=== PATIENT | female | born 1995 | race American Indian/Alaskan Native ===

== ENCOUNTER 2017-01-04 11:03 | Emergency (ER) | payer SELFPAY ==
[2017-01-04 12:13] LABS: Basophils % (Auto) 0.5 % (0.0-1.8); Eosinophils % (Auto) 2.1 % (0.0-4.3); Hematocrit 39.2 % (30.3-42.9); Hemoglobin 12.9 gm/dl (10.1-14.3); Mean Corpuscular HGB Conc 33 % (30-34); Mean Corpuscular Hemoglobin 28 pg (28-32); Mean Corpuscular Volume 86 fl (79-97); Platelet Count 257 K/mm3 (140-440); Red Blood Count 4.59 M/mm3 (3.65-5.03); Red Cell Distribution Width 14.2 % (13.2-15.2); White Blood Count 8.9 K/mm3 (4.5-11.0)
[2017-01-04 12:29] LABS: Alanine Aminotransferase 16 units/L (7-56); Albumin 3.7 g/dL (3.9-5); Alkaline Phosphatase 71 units/L (35-129); Anion Gap 16 mmol/L; BUN/Creatinine Ratio 12; Blood Urea Nitrogen 7 mg/dL (7-17); Calcium 9.1 mg/dL (8.4-10.2); Carbon Dioxide 28 mmol/L (22-30); Chloride 100.7 mmol/L (98-107); Glucose 92 mg/dL (65-100); Lipase 32 units/L (13-60); Potassium 4.5 mmol/L (3.6-5.0); Sodium 140 mmol/L (137-145); Total Protein 7.4 g/dL (6.3-8.2)
[2017-01-04 13:16] LABS: Urine Drugs of Abuse Note Disclamer
[2017-01-04 13:42] LABS: Bacteria,Urine 2+ /HPF (Negative); Bilirubin,Urine NEG (Negative); Blood,Urine NEG (Negative); Ketones,Urine NEG (Negative); Leukocyte Esterase,Urine TR (Negative); Mucus,Urine 1+ /HPF; Nitrite,Urine POS (Negative); Protein,Urine <15 mg/dL mg/dL (Negative)
[2017-01-04] MEDS ORDERED: ZOFRAN IV ONE ×2 (14:11→15:08)
[2017-01-04] MEDS ORDERED: NACL 0.9% 1000 ML 1,000 ML IV ONE (14:11)
[2017-01-04] MEDS ORDERED: ATIVAN IV ONE (15:06)
--- NOTE | 2017-01-04 15:15 | Emergency Department Report ---
HPI - General Chief Complaint: Nausea/Vomiting/Diarrhea Time Seen by Provider: 01/04/17 14:03 - HPI HPI: This is a 21-year-old female presents to the emergency department with complaint of some dizziness, nausea, vomiting that she feels as a withdrawal from heroin, Xanax and cocaine. She last did heroin and cocaine about 2 nights ago and did some Xanax last night. She has a past medical history of asthma, diet controlled diabetes. She has a psychiatric history of bipolar disorder and schizophrenia. She recently moved here from [place] and therefore does not have any primary care physician, family or support. She denies any hallucinations, suicidal or homicidal ideations. ED Past Medical Hx - Past Medical History Hx Hypertension: No Hx Diabetes: Yes (controlled and not on medication) Hx Deep Vein Thrombosis: No Hx Renal Disease: No Hx Sickle Cell Disease: No Hx Seizures: No Hx Psychiatric Treatment: Yes (bipolar,schizophrenia) Hx Asthma: Yes (inhaler last used 1 month ago,.) Hx HIV: No - Surgical History Additional Surgical History: heroin addiction - Social History Smoking Status: Current Every Day Smoker Substance Use Type: Heroin, Other - Medications Home Medications: Home Medications Medication Instructions Recorded Confirmed Last Taken Type Acetaminophen/Codeine [Tylenol #3] 1 tab PO Q6H PRN #20 tab 08/13/15 12/03/15 Unknown Rx Amoxicillin [Trimox CAP] 500 mg PO Q8H #30 capsule 08/13/15 12/03/15 Unknown Rx Ibuprofen [Motrin] 600 mg PO Q8H PRN #40 tablet 08/13/15 12/03/15 Unknown Rx Ibuprofen [Motrin 600 MG tab] 600 mg PO Q6H #30 tablet 11/21/15 12/03/15 Unknown Rx oxyCODONE /ACETAMINOPHEN [Percocet 1 tab PO Q6H PRN #30 tablet 11/21/15 Unknown Rx 5/325 mg] Albuterol Sulfate [Ventolin HFA] 2 puff IH Q4H PRN #1 hfa.aer.ad 12/03/15 Unknown Rx Azithromycin [Zithromax Z-TIMBO] 1 dose PO DAILY 5 Days 12/03/15 Unknown Rx Benzonatate [Tessalon Perles] 100 mg PO Q8HR PRN #30 capsule 12/03/15 Unknown Rx Ibuprofen [Motrin] 800 mg PO Q8HR PRN #30 tablet 12/03/15 Unknown Rx Prednisone [predniSONE 10 mg 10 mg PO .TAPER #1 tab.ds.pk 12/03/15 Unknown Rx (6-Day Pack, 21 Tabs)] ED Review of Systems ROS: Stated complaint: HEROIN WITHDRAWL Other details as noted in HPI Comment: All other systems reviewed and negative Constitutional: denies: chills, fever Eyes: denies: eye pain, eye discharge, vision change ENT: denies: ear pain, throat pain Respiratory: denies: cough, shortness of breath, wheezing Cardiovascular: denies: chest pain, palpitations Gastrointestinal: nausea, vomiting Genitourinary: denies: urgency, dysuria, discharge Musculoskeletal: denies: back pain, joint swelling, arthralgia Skin: denies: rash, lesions Neurological: denies: headache, weakness, paresthesias Psychiatric: anxiety. denies: auditory hallucinations, visual hallucinations, homicidal thoughts, suicidal thoughts Physical Exam - Physical Exam Vital Signs: Vital Signs 01/04/17 01/04/17 11:44 14:40 Temperature 99.4 F 99.3 F Pulse Rate 112 H 92 H Respiratory 18 16 Rate Blood Pressure 122/74 Blood Pressure 111/73 [Left] O2 Sat by Pulse 99 98 Oximetry Physical Exam: GENERAL: The patient is well-developed well-nourished. HENT: Normocephalic. Atraumatic. Patient has moist mucous membranes. EYES: Extraocular motions are intact. Pupils equal reactive to light bilaterally. NECK: Supple. Trachea is midline. CHEST/LUNGS: Clear to auscultation. There is no respiratory distress noted. HEART/CARDIOVASCULAR: Regular. There is mild tachycardia. There is no gallop rub or murmur. ABDOMEN: Abdomen is soft, nontender. Patient has normal bowel sounds. There is no abdominal distention. SKIN: Skin is warm and dry. NEURO: The patient is awake, alert, and oriented. The patient is cooperative. The patient has no focal neurologic deficits. The patient has normal speech. MUSCULOSKELETAL: There is no tenderness or deformity. There is no limitation range of motion. There is no evidence of acute injury. ED Course Vital Signs 01/04/17 01/04/17 11:44 14:40 Temperature 99.4 F 99.3 F Pulse Rate 112 H 92 H Respiratory 18 16 Rate Blood Pressure 122/74 Blood Pressure 111/73 [Left] O2 Sat by Pulse 99 98 Oximetry ED Medical Decision Making - Lab Data Result diagrams: 01/04/17 11:53 01/04/17 11:53 - Medical Decision Making 21-year-old female presents to the emergency department with the complaint of some nausea, vomiting, anxiety and withdrawal symptoms from her polysubstance abuse and dependence. She has a urine drug screen positive for cocaine, marijuana and benzodiazepines and she admits to heroin use. At first the patient is slightly nauseated. Shortly afterwards the patient began becoming very anxious, shaking, saying that she felt like she was "going crazy." Thus labs are mostly unremarkable. She does not have any suicidal or homicidal ideations and she denies any hallucinations. However the patient is interested in detox and/or help with withdrawal. She was seen by the crisis counselor who suggested a 2013 for this patient and the patient agrees to the stay overnight so that she can see psychiatry. - Differential Diagnosis withdrawal, polysubstance dependence/abuse, depression, anxiety Critical Care Time: No Critical care attestation.: If time is entered above; I have spent that time in minutes in the direct care of this critically ill patient, excluding procedure time. ED Disposition Clinical Impression: Polysubstance abuse, Withdrawal complaint, Anxiety Nausea & vomiting Qualifiers: Vomiting type: unspecified Vomiting Intractability: non-intractable Qualified Code(s): R11.2 - Nausea with vomiting, unspecified Disposition: DC/TX-65 PSY HOSP/PSY UNIT Is pt being admited?: No Condition: Stable Referrals: PRIMARY CARE, [Primary Care Provider] - 3-5 Days Time of Disposition: 18:26
[2017-01-04] MEDS ORDERED: BENADRYL IV ONE (15:38)
[2017-01-05] MEDS ORDERED: MOTRIN PO ONE ×3 (01:58→11:38)
[2017-01-05] MEDS ORDERED: ATIVAN PO ONE (02:04)
[2017-01-05] MEDS ORDERED: TORADOL IV ONE (09:20)
[2017-01-05] MEDS ORDERED: ROBAXIN PO PRN ×3 (12:18→16:35)
[2017-01-05] MEDS ORDERED: ATIVAN IV ONE (12:28)
--- NOTE | 2017-01-05 12:33 | Consultation ---
History of Present Illness - Reason for Consult Consult date: 01/05/17 Reason for consult: Mental Health Evaluation Requesting physician: JEREMI CLAIRE - Chief Complaint Chief complaint: "I want help" - History of Present Psychiatric Illness This is a 21-year-old female presents to the emergency department with complaint of some dizziness, nausea, vomiting that she feels as a withdrawal from heroin, Xanax and cocaine. Today patient is calm and cooperative during the assessment. She stated that she was discharged earlier from the hospital and "acted out" prior to leaving hospital. She stated that she should have not done that. She stated that she used heroin, cocaine, and xanax 2 days ago. She stated that she only took xanax twice "ever." She stated that she was prescribed percocet over a year ago after having a miscarriage and stopped taking the medication. She stated a couple days later she started having craving (for the percocet), she was told to use heroin by a friend. She stated that she been using heroin for the past year. 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 She stated having racing thoughts, episodes of days without sleep, irritability, and depression symptoms the last week which has happened in the past. She stated that she use cocaine to "ease her mind." She denies SI/HI's and AVH's. She denies excessive alcohol consumption (etoh). She stated taking Depakote and Abilify in the past that was beneficial. She rate her anxiety 5/10, with 10 being the worse. Medications and Allergies Allergies Allergy/AdvReac Type Severity Reaction Status Date / Time peanut AdvReac Mild Hives Verified 11/19/15 00:57 Home Medications Medication Instructions Recorded Confirmed Last Taken Type Acetaminophen/Codeine [Tylenol #3] 1 tab PO Q6H PRN #20 tab 08/13/15 12/03/15 Unknown Rx Amoxicillin [Trimox CAP] 500 mg PO Q8H #30 capsule 08/13/15 12/03/15 Unknown Rx Ibuprofen [Motrin] 600 mg PO Q8H PRN #40 tablet 08/13/15 12/03/15 Unknown Rx Ibuprofen [Motrin 600 MG tab] 600 mg PO Q6H #30 tablet 11/21/15 12/03/15 Unknown Rx oxyCODONE /ACETAMINOPHEN [Percocet 1 tab PO Q6H PRN #30 tablet 11/21/15 Unknown Rx 5/325 mg] Albuterol Sulfate [Ventolin HFA] 2 puff IH Q4H PRN #1 hfa.aer.ad 12/03/15 Unknown Rx Azithromycin [Zithromax Z-TIMBO] 1 dose PO DAILY 5 Days 12/03/15 Unknown Rx Benzonatate [Tessalon Perles] 100 mg PO Q8HR PRN #30 capsule 12/03/15 Unknown Rx Ibuprofen [Motrin] 800 mg PO Q8HR PRN #30 tablet 12/03/15 Unknown Rx Prednisone [predniSONE 10 mg 10 mg PO .TAPER #1 tab.ds.pk 12/03/15 Unknown Rx (6-Day Pack, 21 Tabs)] Active Meds: Active Medications Methocarbamol (Robaxin) 500 mg PO ONCE ONE Stop: 01/05/17 12:33 Past psychiatric history - Past Medical History Past Medical History: diabetes, other (Asthma) Past Surgical History: No surgical history - past Psychiatric treatment and history Psych: Bipolar psychiatric treatment history: Saw a psychiatrist in [place] for outpatient psy services. Fam psy hx of Bipolar DO. - Social History Social history: other (Homeless) Mental Status Exam - Vital signs Last Vital Signs Temp 98.2 F 01/05/17 07:33 Pulse 89 01/05/17 07:33 Resp 16 01/05/17 07:33 BP 123/59 01/05/17 07:33 Pulse Ox 100 01/05/17 07:33 - Exam Narrative exam: MSE: Appearance: calm, cooperative Behavior: regular eye contact Speech: regular rate and tone Mood: "I am hurting" Affect: congruent to mood Thought Process: circumstantial Thought Content: denies SI/HI's and AVH Motor Activity: ambulatory Cognition: A/Ox 3 Insight: fair Judgment: fair Results Result Diagrams: 01/04/17 11:53 01/04/17 11:53 All other labs normal. Assessment and Plan Assessment and plan: Impression: Bipolar DO. Substance Use DO (cocaine/marijuana). Today patient is calm and cooperative during the assessment. Positive for benzos. Patient complaining of muscle aches and anxiety (opiate withdrawal). DDx: R/O MDD Recommendation/Plan: Evaluate 2013 in 24 hours to determine proper dispo. Start Depakote 500 mg PO BID for mood, Abilify 5 mg PO daily for mood, Robaxin 500 mg Q8hrs for muscle spasm/body aches, and Vistaril 25 mg PO BID for anxiety. Discussed possible metabolic side effects of Abilify with patient.
[2017-01-05] MEDS: ROBAXIN PO ONE ×2 (13:00→17:54)
[2017-01-05] MEDS ORDERED: HABITROL TD ONE (14:00)
[2017-01-05] MEDS: VISTARIL PO SCH ×2 (18:24→23:19)
[2017-01-05] MEDS: ABILIFY PO SCH (23:18)
[2017-01-06 07:55] VITALS: BP 111/76
--- NOTE | 2017-01-06 09:59 | Progress Note ---
Subjective - Reason for Consult Consult date: 01/06/17 Reason for consult: Psychiatry Follow-up - Chief Complaint Chief complaint: "I feel better" This is a 21-year-old female presents to the emergency department with complaint of some dizziness, nausea, vomiting that she feels as a withdrawal from heroin, Xanax and cocaine. Today patient is calm and cooperative during the assessment. She stated that she will follow up with psy/rehab services once discharged. She stated that she plan to return to [place] soon. She stated that she has money for a hotel room. She denies SI/HI's and AVH's. She denies any side effects of her medications. Mental Status Exam - Vital signs Last Vital Signs Temp 98.5 F 01/06/17 07:54 Pulse 84 01/06/17 07:54 Resp 18 01/06/17 07:54 BP 111/76 01/06/17 07:54 Pulse Ox 100 01/06/17 07:54 - Exam Narrative exam: MSE: Appearance: calm, cooperative Behavior: regular eye contact Speech: regular rate and tone Mood: "better" Affect: congruent to mood Thought Process: logical Thought Content: denies SI/HI's and AVH Motor Activity: ambulatory Cognition: A/Ox 3 Insight: fair Judgment: fair Assessment and Plan Impression: Bipolar DO. Substance Use DO (cocaine/marijuana). Today patient is calm and cooperative during the assessment. Positive for benzos. Patient denies acute withdrawals (opiates). DDx: R/O MDD Recommendation/Plan: Rescind 2012. Continue Depakote 500 mg PO BID for mood and Abilify 5 mg PO daily for mood. Discussed possible metabolic side effects of Abilify with patient. Informed patient to get her [facility] levels check (blood work) within the next 5 days. Patient given referral to [facility] for outpatient psy/rehab services. Discussed the importance to abstain from recreational drug use.
[2017-01-06] MEDS: VISTARIL PO SCH (10:41)
[2017-01-06] MEDS: ABILIFY PO SCH (12:32)
== END 2017-01-06 16:57 ==
LOC: EEVIPCON 11:03 → ED 11:03
DX: F11.23 Opioid dependence with withdrawal (principal); R11.2 Nausea with vomiting, unspecified; F11.10 Opioid abuse, uncomplicated; E11.9 Type 2 diabetes mellitus without complications; J45.909 Unspecified asthma, uncomplicated; F17.200 Nicotine dependence, unspecified, uncomplicated
CPT/HCPCS: 36415; 80053; 80164; 80307; 81001; 83690; 84703; 85025; 96374; 96375; 96376; 99285; G0480; J1200; J1885; J2060; J2405; J7030; 80320; Q0177

== ENCOUNTER 2018-05-28 10:47 | Emergency (ER) | payer MEDICAID ==
--- NOTE | 2018-05-28 11:01 | Emergency Department Report ---
Stated Complaint: LT ELBOW PAIN Time Seen by Provider: 05/28/18 10:59 - HPI History of Present Illness: co l elbow and arm pain pmh endometriosis eczema asthma no trauma otc not relieving pain pmh none lmp 05/19 cig no drugs or etoh full rom allergy pcn- hives neurovascular intact MSE screening note: Focused history and physical exam performed. Due to findings the following was ordered: ED Disposition for MSE Condition: Stable
[2018-05-28] MEDS ORDERED: TYLENOL PO ONE (11:03)
[2018-05-28 11:05] VITALS: BP 118/82
--- NOTE | 2018-05-28 11:43 | Emergency Department Report ---
ED Extremity Problem HPI - General Chief complaint: Extremity Problem,Nontraumatic Stated complaint: LT ELBOW PAIN Time Seen by Provider: 05/28/18 10:59 Source: patient Mode of arrival: Ambulatory Limitations: No Limitations - History of Present Illness Initial comments: Patient is a 22-year-old female who is complaining of some left elbow pain. Patient states it was no direct trauma or falls. She was helping her uncle move some mattresses yesterday and his woke up and was unable to bend her left elbow. Patient states pain is 6 out of 10 in severity her sores with tried to fully extend or fully flex the elbow Severity scale (0 -10): 6 - Related Data Previous Rx's Medication Instructions Recorded Last Taken Type Ibuprofen [Ibu] 800 mg PO Q8H PRN #20 tablet 05/28/18 Unknown Rx Allergies Allergy/AdvReac Type Severity Reaction Status Date / Time peanut AdvReac Mild Hives Verified 11/19/15 00:57 Penicillins AdvReac Hives Verified 05/28/18 11:00 ED Review of Systems ROS: Stated complaint: LT ELBOW PAIN Other details as noted in HPI Comment: All other systems reviewed and negative ED Past Medical Hx - Past Medical History Hx Hypertension: No Hx Diabetes: Yes (controlled and not on medication) Hx Deep Vein Thrombosis: No Hx Renal Disease: No Hx Sickle Cell Disease: No Hx Seizures: No Hx Psychiatric Treatment: Yes (bipolar) Hx Asthma: Yes (inhaler last used 1 month ago,.) Hx HIV: No - Surgical History Additional Surgical History: heroin addiction - Social History Smoking Status: Current Every Day Smoker Substance Use Type: None - Medications Home Medications: Home Medications Medication Instructions Recorded Confirmed Last Taken Type Ibuprofen [Ibu] 800 mg PO Q8H PRN #20 tablet 05/28/18 Unknown Rx ED Physical Exam - General Limitations: No Limitations General appearance: alert, in no apparent distress - Head Head exam: Present: atraumatic, normocephalic - Eye Eye exam: Present: normal appearance, PERRL - Respiratory Respiratory exam: Absent: respiratory distress - Expanded Upper Extremity Exam Left Elbow exam: Present: full ROM, tenderness (palpation to the left elbow). Absent: swelling, abrasion, laceration, ecchymosis, deformity, crepidus, dislocation, erythema, effusion, pain w/ pronation/supination, tenderness over radial head ED Course Vital Signs 05/28/18 11:01 Temperature 98.1 F Pulse Rate 81 Respiratory 16 Rate Blood Pressure 118/82 O2 Sat by Pulse 98 Oximetry ED Medical Decision Making - Medical Decision Making Patient with tendinitis likely in the left elbow. Likely from some overuse and strain from heavy lifting yesterday. Patient placed on a sling for 2-3 days and be given meds for pain. Patient given rice therapy. Critical care attestation.: If time is entered above; I have spent that time in minutes in the direct care of this critically ill patient, excluding procedure time. ED Disposition Clinical Impression: Elbow tendonitis Disposition: DC-01 TO HOME OR SELFCARE Is pt being admited?: No Does the pt Need Aspirin: No Condition: Stable Instructions: Tendinitis (ED) Referrals: KENJI REYNOSO MD [Staff Physician] - as needed Time of Disposition: 11:43
== END 2018-05-28 12:06 | disposition home or self-care (01) ==
LOC: ED 10:47
DX: M77.9 Enthesopathy, unspecified (principal); E11.9 Type 2 diabetes mellitus without complications; J45.909 Unspecified asthma, uncomplicated; F17.200 Nicotine dependence, unspecified, uncomplicated